=== PATIENT | male | born 1990 | race Caucasian/White ===

== ENCOUNTER 2016-12-06 01:48 | Emergency (ER) | payer OTHER ==
[2016-12-06] MEDS ORDERED: NS 1,000 ML IV ONE (01:52)
[2016-12-06] MEDS ORDERED: ONDANSETRON 4 MG/2 ML VIAL IVP ONE (01:53)
--- NOTE | 2016-12-06 01:55 | EDPHY ---
H & P HPI/ROS: HPI CHIEF COMPLAINT: Vomiting fall, head injury HISTORY OF PRESENT ILLNESS: This patient very pleasant 26-year-old male, is otherwise healthy denies any significant medical history presents emergency room after he woke up after hearing a popping sensation in his right shoulder. He thinks his shoulder got dislocated and relocated. He got up to use the bathroom felt very nauseous and had multiple episodes of vomiting. This caused him to have a syncopal episode. He did fall and strike his head. He presents emergency room GCS 15, alert or x4 in a cervical collar. His main complaint is ongoing nausea. He denies any chest pain. Past Medical History: Denies medical history Past Surgical History: Denies surgical history Social History: Denies daily use of drugs alcohol tobacco products. Family History: Noncontributory. ROS REVIEW OF SYSTEMS: A comprehensive 10 point review of systems is otherwise negative aside from elements mentioned in the history of present illness. Exam Constitutional triage nursing summary reviewed, vital signs reviewed, awake/ alert. Eyes normal conjunctivae and sclera, EOMI, PERRLA. HENT head/neck atraumatic however in rigid cervical collar, normal inspection, atraumatic, moist mucus membranes, no epistaxis, neck supple/ no meningismus, no raccoon eyes. Respiratory clear to auscultation bilaterally, normal breath sounds, no respiratory distress, no wheezing. Cardiovascular rate normal, regular rhythm, no murmur, no edema, distal pulses normal. Gastrointestinal soft, non-tender, no rebound, no guarding, normal bowel sounds, no distension, no pulsatile mass. Genitourinary no CVA tenderness. Musculoskeletal no midline vertebral tenderness, full range of motion, no calf swelling, no tenderness of extremities, no meningismus, good pulses, neurovascularly intact. Skin pink, warm, & dry, no rash, skin atraumatic. Neurologic awake, alert and oriented x 3, AAOx3, moves all 4 extremities equally, motor intact, sensory intact, CN II-XII intact, normal cerebellar, normal vision, normal speech. Psychiatric normal mood/affect. Heme/Lymph/Immune no lymphadenopathy. Includes but is not limited to in a particular order, vasovagal syncope, orthostatic syncope, dehydration, electrolyte disturbance, cardiac arrhythmia, intracranial bleed, skull fracture. Medical Decision Making: Plan for this patient IV establishment IV fluid bolus , CT scan of the head and neck due to trauma, Zofran for nausea, check electrolytes, EKG, troponin. Re-evaluation: EKG interpretation by me on record in [facility] system. Impression time of EKG 2:09 a.m., sinus rhythm rate of 57. LVH present. Otherwise unremarkable EKG. No signs of ischemia or cardiac arrhythmia. ED x-ray chest one view: Negative for acute cardiopulmonary disease. ED CT scan head and neck without contrast for trauma. Negative for acute traumatic injury. 0249: I did re-evaluate this patient this time resting comfortably no acute distress. I was able to clear cervical collar is no midline cervical spine pain. Patient is feeling much better. He denies any nausea. He is asking something to drink. 0330AM: Patient ambulatory throughout the emergency room without any difficulty feels well. Understands return precautions. Vital signs are stable. Workup for syncope and head injury is unremarkable here in emergency room. Negative head and neck scan. EKG nonischemic or no signs of cardiac arrhythmia. Electrolytes are appropriate. Patient understands to take it easy the next 24-48 hours drink lots of fluids. Return to the ER for worsening symptoms questions concerns or recurrence of syncope. Source: Patient, EMS Constitutional: Initial Vital Signs Temperature (C) 36.4 C 12/06/16 01:56 Heart Rate 69 12/06/16 01:56 Respiratory Rate 18 12/06/16 01:56 Blood Pressure 124/72 H 12/06/16 01:56 O2 Sat (%) 100 12/06/16 01:56 O2 Delivery Mode Room Air Allergies/Adverse Reactions: No Known Allergies Allergy (Unverified 12/06/16 02:03) Home Medications: Medication Instructions Recorded NK [No Known Home Meds] 12/06/16 Medical Decision Making - Data Points Laboratory Results: Laboratory Results 12/06/16 01:50 12/06/16 01:50 12/06/16 12/06/16 12/06/16 01:50 01:50 01:50 WBC 9.17 10^3/uL 10^3/uL (3.80-9.50) RBC 5.48 10^6/uL 10^6/uL (4.40-6.38) Hgb 16.7 g/dL g/dL (13.7-17.5) Hct 48.2 % % (40.0-51.0) MCV 88.0 fL fL (81.5-99.8) MCH 30.5 pg pg (27.9-34.1) MCHC 34.6 g/dL g/dL (32.4-36.7) RDW 12.2 % % (11.5-15.2) Plt Count 377 10^3/uL 10^3/uL (150-400) MPV 8.6 fL L fL (8.7-11.7) Neut % (Auto) 25.9 % L % (39.3-74.2) Lymph % (Auto) 60.4 % H % (15.0-45.0) [place] % (Auto) 10.1 % % (4.5-13.0) Eos % (Auto) 2.6 % % (0.6-7.6) Baso % (Auto) 0.7 % % (0.3-1.7) Nucleat RBC Rel Count 0.0 % % (0.0-0.2) Absolute Neuts (auto) 2.37 10^3/uL 10^3/uL (1.70-6.50) Absolute Lymphs (auto) 5.54 10^3/uL H 10^3/uL (1.00-3.00) Absolute Monos (auto) 0.93 10^3/uL H 10^3/uL (0.30-0.80) Absolute Eos (auto) 0.24 10^3/uL 10^3/uL (0.03-0.40) Absolute Basos (auto) 0.06 10^3/uL 10^3/uL (0.02-0.10) Absolute Nucleated RBC 0.00 10^3/uL 10^3/uL (0-0.01) Immature Gran % 0.3 % % (0.0-1.1) Immature Gran # 0.03 10^3/uL 10^3/uL (0.00-0.10) PT 12.7 SEC SEC (12.0-15.0) INR 0.96 (0.83-1.16) APTT 26.9 SEC SEC (23.0-38.0) D-Dimer 0.39 ug/mLFEU ug/mLFEU (0.00-0.50) Sodium 143 mEq/L mEq/L (134-144) Potassium 3.9 mEq/L mEq/L (3.5-5.2) Chloride 103 mEq/L mEq/L (97-110) Carbon Dioxide 22 mEq/l mEq/l (22-31) Anion Gap 18 mEq/L H mEq/L (8-16) BUN 16 mg/dL mg/dL (7-23) Creatinine 1.0 mg/dL mg/dL (0.7-1.3) Estimated GFR > 60 Glucose 117 mg/dL H mg/dL (70-100) Calcium 10.0 mg/dL mg/dL (8.5-10.4) Magnesium 2.1 mg/dL mg/dL (1.6-2.3) Total Bilirubin 0.3 mg/dL mg/dL (0.1-1.4) Conjugated Bilirubin 0.2 mg/dL mg/dL (0.0-0.5) Unconjugated Bilirubin 0.1 mg/dL mg/dL (0.0-1.1) AST 31 IU/L IU/L (17-59) ALT 36 IU/L IU/L (21-72) Alkaline Phosphatase 71 IU/L IU/L (38-126) Creatine Kinase 242 IU/L H IU/L (0-224) CK-MB (CK-2) Fraction 4.88 ng/mL H ng/mL (0.00-3.19) CK-MB (CK-2) % 2.0 % % (0.0-4.0) Creatine Kinase Interp NEGATIVE (NEGATIVE) Troponin I < 0.012 ng/mL ng/mL (0.000-0.034) NT-Pro-B Natriuret Pep 27 pg/mL pg/mL (0-125) Total Protein 7.5 g/dL g/dL (6.3-8.2) Albumin 4.7 g/dL g/dL (3.5-5.0) Lipase 200 IU/L IU/L (23-300) Medications Given: Discontinued Medications Sodium Chloride (Ns) 1,000 mls @ 0 mls/hr IV EDNOW ONE; Wide Open PRN Reason: Protocol Stop: 12/06/16 01:53 Last Admin: 12/06/16 02:12 Dose: 1,000 mls Ondansetron HCl (Zofran) 4 mg IVP EDNOW ONE Stop: 12/06/16 01:54 Last Admin: 12/06/16 02:12 Dose: 4 mg Departure - Departure Disposition: Home, Routine, Self-Care Clinical Impression: Syncope Qualifiers: Syncope type: unspecified Qualified Code(s): R55 - Syncope and collapse Condition: Good Instructions: Syncope (ED) Additional Instructions: 1. Stay well-hydrated drink lots of fluids. 2. Return emergency room if develops any worsening symptoms includes passing out , chest pain or shortness of breath or vomiting. 3. Take it easy over the next 24-48 hours. Referrals: Patient,NotPresent [Unknown] - As per Instructions
[2016-12-06 02:03] LABS: % IMMATURE GRANULYOCYTES 0.3 % (0.0-1.1); ABSOLUTE IMMATURE GRANULOCYTES 0.03 10^3/uL (0.00-0.10); ADD DIFF? NO; ADD MORPH? NO; ADD SCAN? NO; ATYPICAL LYMPHOCYTE FLAG 20 (0-99); FRAGMENT RBC FLAG 0 (0-99); HEMATOCRIT 48.2 % (40.0-51.0); HEMOGLOBIN 16.7 g/dL (13.7-17.5); LEFT SHIFT FLG 0 (0-99); LIPEMIA HEMOLYSIS FLAG 90 (0-99); MEAN CELL HEMOGLOBIN 30.5 pg (27.9-34.1); MEAN CELL HEMOGLOBIN CONCENTR. 34.6 g/dL (32.4-36.7); MEAN PLATELET VOLUME 8.6 fL (8.7-11.7); PLATELET CLUMPS FLAG 20 (0-99); PLATELET COUNT 377 10^3/uL (150-400); RED BLOOD CELL COUNT 5.48 10^6/uL (4.40-6.38); RED CELL DISTRIBUTION WIDTH 12.2 % (11.5-15.2)
[2016-12-06 02:13] LABS: INR 0.96 (0.83-1.16); PROTIME(PATIENT) 12.7 SEC (12.0-15.0)
--- NOTE | 2016-12-06 02:13 | CPEKG ---
Heart Rate: 57 RR Interval: 1053 P-R Interval: 124 QRSD Interval: 106 QT Interval: 444 QTC Interval: 433 P [place]: 22 QRS [place]: 50 T Wave [place]: 27 EKG Severity - ABNORMAL ECG - EKG Impression: SINUS RHYTHM EKG Impression: PROBABLE LEFT VENTRICULAR HYPERTROPHY Electronically Signed By: Yoana Perales 06-Dec-2016 21:12:31
[2016-12-06 02:14] LABS: APTT 26.9 SEC (23.0-38.0)
[2016-12-06 02:21] LABS: ALANINE AMINOTRANSFERASE 36 IU/L (21-72); ALBUMIN 4.7 g/dL (3.5-5.0); ALKALINE PHOSPHATASE 71 IU/L (38-126); ANION GAP 18 mEq/L (8-16); ASPARTATE AMINOTRANSFERASE 31 IU/L (17-59); BILIRUBIN,TOTAL 0.3 mg/dL (0.1-1.4); BILIRUBIN-CONJUGATED 0.2 mg/dL (0.0-0.5); BILIRUBIN-UNCONJUGATED 0.1 mg/dL (0.0-1.1); CARBON DIOXIDE 22 mEq/l (22-31); CHLORIDE 103 mEq/L (97-110); GLOMERULAR FILTRATION RATE > 60; GLUCOSE 117 mg/dL (70-100); MAGNESIUM 2.1 mg/dL (1.6-2.3); POTASSIUM 3.9 mEq/L (3.5-5.2); SODIUM 143 mEq/L (134-144); TOTAL PROTEIN 7.5 g/dL (6.3-8.2)
[2016-12-06 02:29] LABS: CK-MB INTERPRETATION NEGATIVE (NEGATIVE); TROPONIN I < 0.012 ng/mL (0.000-0.034)
[2016-12-06 02:31] LABS: CREATINE KINASE-MB FRACTION 4.88 ng/mL (0.00-3.19)
[2016-12-06 03:41] VITALS: RESP 16
[2016-12-06 03:42] VITALS: BP 117/67; PULSE 62; TEMP 98.1; O2SAT 96
== END 2016-12-06 03:44 | disposition home or self-care (01) ==
DX: R55 Syncope and collapse (principal); E86.9 Volume depletion, unspecified; W01.198A Fall on same level from slipping, tripping and stumbling with subsequent striking against other object, initial encounter; Y99.8 Other external cause status; Y93.89 Activity, other specified
CPT/HCPCS: 96374; J2405

== ENCOUNTER 2017-11-13 15:55 | Emergency (ER) | payer OTHER ==
[2017-11-13] MEDS ORDERED: HYDROmorphONE/DILAUDID 2 MG/ML INJ IVP ONE ×2 (16:30→18:41)
[2017-11-13] MEDS ORDERED: NS 1,000 ML IV ONE (16:30)
[2017-11-13] MEDS ORDERED: LORazepam 2 MG/ML INJ IVP ONE (16:35)
[2017-11-13] MEDS ORDERED: LORazepam 2 MG/ML INJ ONE (16:36)
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
[2017-11-13 16:49] LABS: PLATELET COUNT 334 10^3/uL (150-400)
[2017-11-13 16:56] LABS: INR 0.96 (0.83-1.16)
[2017-11-13 20:04] VITALS: BP 116/49
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
== END 2017-11-13 20:07 | disposition short-term general hospital (02) ==
LOC: EDUNIT#
DX: S32.810A Multiple fractures of pelvis with stable disruption of pelvic ring, initial encounter for closed fracture (principal); E86.9 Volume depletion, unspecified; V13.4XXA Pedal cycle driver injured in collision with car, pick-up truck or van in traffic accident, initial encounter; Y93.55 Activity, bike riding; Y92.410 Unspecified street and highway as the place of occurrence of the external cause; Y99.9 Unspecified external cause status
CPT/HCPCS: 96374; G0480; J1170; J2060